=== PATIENT | female | born 1970 | race African-American/Black ===

== ENCOUNTER 2017-10-11 18:40 | Emergency (ER) | payer SELFPAY ==
--- NOTE | 2017-10-11 20:44 | RAD ---
TWO VIEWS OF THE CHEST 10/11/17 COMPARISON: None. HISTORY: Cough. FINDINGS: No pneumothorax, pleural fluid, focal consolidation or alveolar edema. Heart and mediastinal contours are grossly unremarkable. IMPRESSION: No acute findings. POS: [facility]
== END 2017-10-11 21:51 | disposition home or self-care (01) ==
LOC: ERS 18:40
DX: J40 Bronchitis, not specified as acute or chronic (principal); I10 Essential (primary) hypertension; F17.210 Nicotine dependence, cigarettes, uncomplicated
CPT/HCPCS: 71046; 99406

== ENCOUNTER 2020-03-16 14:15 | Emergency (ER) | payer SELFPAY ==
--- NOTE | 2020-03-16 17:25 | RAD ---
Exam:Right shoulder 3 view HISTORY: Pain. COMPARISON: None FINDINGS: Glenohumeral joint space is preserved. Acromioclavicular and coracoclavicular distances are maintained. No fracture or dislocation. Visualized right ribs and lung parenchyma do not demonstrate any acute abnormality. IMPRESSION: No acute abnormality. No dislocation or fracture.
--- NOTE | 2020-03-16 17:25 | RAD ---
Exam:3 views right ankle HISTORY: Crush injury. Pain. COMPARISON: None FINDINGS: No significant soft tissue swelling. Preserved joint spaces. No acute fracture. IMPRESSION: No acute fracture or significant soft tissue swelling.
--- NOTE | 2020-03-16 17:26 | RAD ---
Exam:Right tibia fibula 2 views HISTORY: Pain. Crush injury. COMPARISON: None FINDINGS: No fracture, cortical irregularity or periosteal reaction. IMPRESSION: No fracture.
[2020-03-16] MEDS ORDERED: Ketorolac Tromethamine 30 MG/ML VIAL ONE (17:29)
--- NOTE | 2020-03-16 17:46 | ULT ---
Exam:Rightlower extremity venous ultrasound with Doppler HISTORY: Right lower extremity pain. COMPARISON: None TECHNIQUE: Grayscale, color flow, Doppler imaging and spectral wave muscle performed right lower extr emity venous system FINDINGS: There is compressibility, presence of flow and augmentation in the common femoral vein, femoral vein and popliteal vein. There is flow in the posterior tibial vein. There is flow in the greater saphenous vein and profunda femoral vein IMPRESSION: No thrombus in the right lower extremity deep venous system.
== END 2020-03-16 22:49 | disposition home or self-care (01) ==
LOC: ERS 14:15
DX: S80.11XA Contusion of right lower leg, initial encounter (principal); M25.511 Pain in right shoulder; M25.571 Pain in right ankle and joints of right foot; I10 Essential (primary) hypertension; F17.210 Nicotine dependence, cigarettes, uncomplicated; V89.2XXA Person injured in unspecified motor-vehicle accident, traffic, initial encounter
CPT/HCPCS: 96372; J1885

== ENCOUNTER 2020-05-29 15:03 | Emergency (ER) | payer SELFPAY ==
[2020-05-29] MEDS ORDERED: Albuterol 200 PUFF (6.7GM INHALER) ONE (15:43)
[2020-05-29] MEDS ORDERED: Dexamethasone 4 MG TAB ONE (16:12)
== END 2020-05-29 16:44 | disposition home or self-care (01) ==
LOC: ERS 15:03
DX: R09.81 Nasal congestion (principal); R06.2 Wheezing; I10 Essential (primary) hypertension; F17.210 Nicotine dependence, cigarettes, uncomplicated
CPT/HCPCS: 94664; J8540

== ENCOUNTER 2022-06-20 15:32 | Emergency (ER) | payer SELFPAY | END 2022-06-20 21:55 | disposition home or self-care (01) | LOC: ERS 15:32 | DX: R05.9 Cough, unspecified (principal); R06.02 Shortness of breath; Z86.11 Personal history of tuberculosis | CPT/HCPCS: 71045 ==

== ENCOUNTER 2025-02-16 11:25 | Emergency (ER) | payer SELFPAY ==
[2025-02-16] MEDS ORDERED: Ibuprofen 800 MG TAB ONE (12:12)
== END 2025-02-16 13:08 | disposition home or self-care (01) ==
LOC: ERS 11:25
DX: R05.9 Cough, unspecified (principal); M65.4 Radial styloid tenosynovitis [de Quervain]; I10 Essential (primary) hypertension; F17.210 Nicotine dependence, cigarettes, uncomplicated; Z79.899 Other long term (current) drug therapy
CPT/HCPCS: 71046; 87428